=== PATIENT | female | born 1980 | race Two or more races ===

== ENCOUNTER 2025-01-23 18:31 | Emergency (ER) | payer OTHER ==
[~2025-01-23] VITALS: Ht 162.6 cm; Wt 49.9 kg
[2025-01-23] MEDS ORDERED: ACETAMINOPHEN 500 MG GEL..CAP PO ONE (19:45)
== END 2025-01-23 22:38 | disposition home or self-care (01) ==
LOC: ER 18:31
DX: S00.93XA Contusion of unspecified part of head, initial encounter (principal); W18.39XA Other fall on same level, initial encounter; Y93.89 Activity, other specified; Y92.018 Other place in single-family (private) house as the place of occurrence of the external cause; Y99.9 Unspecified external cause status